=== PATIENT | female | born 1960 | race Caucasian/White ===

== ENCOUNTER 2017-02-16 06:44 | Day surgery (SDC) | payer BC ==
[~2017-02-16 06:44] MED LIST: RINGERS SOLUTION,LACTATED 1,000 ML IV PRN
--- OUTSIDE RECORDS SUMMARY | 2017-02-16 06:48 | XMS REPORT | Continuity of Care Document ---
:1960 Author Organization [employer] [place] [address] Care Team Providers Name Role Phone Unavailable Primary Care Provider Unavailable Source Comments This disclosure is being made pursuant to the All Web Leads program and maynot contain all information available regarding this patient.[facility] Active Allergies and Adverse Reactions Not on File Current Medications Be aware that medications may not be up to date as of this document. Alwaysverify current medications with the patient. Not on file Active Problems Not on file Social History Tobacco Use Types Packs/Day Years Used Date Never Smoker Last Filed Vital Signs Vital Sign Reading Time Taken Blood Pressure 149/78 01/01/2013 2:28 PM HEMATOLOGIST Pulse - - Temperature - - Respiratory Rate - - Height 1.549 m (5' 1") 01/01/2013 2:28 PM HEMATOLOGIST Weight 83.915 kg (185 lb) 01/01/2013 2:28 PM HEMATOLOGIST Body Mass Index 34.97 01/01/2013 2:28 PM HEMATOLOGIST Oxygen Saturation - - Plan of Care Health Maintenance Due Date Last Done Comments Retired-Pertussis Vaccine Adult 1977 Retired-Tetanus Vaccine Adult 1977 Pap Smear 1979 Mammogram 1998 Colonoscopy 2008 Well Adult Visit 2008 Retired-INFLUENZA VACCINE 07/01/2015 Results from Last 3 Months Not on file
--- OUTSIDE RECORDS SUMMARY | 2017-02-16 06:48 | XMS REPORT | Continuity of Care Document ---
:1960 Author Organization [facility] ([facility]) Address [address] [place] [address] Phone [phone] Care Team Providers Name Role Phone Ricardo Hutson Primary Care Provider [phone] Source Comments This disclosure is being made pursuant to the Care Everywhere program, applicable federal and state laws, and may not contain all informaitonavailable regarding this patient.[facility] ([facility]) Active Allergies and Adverse Reactions Allergen Noted Date Severity Reactions Comments Atorvastatin 02/07/2015 OTHER Heart pounding Current Medications Prescription Sig. Disp. Refills Start Date End Date Status valsartan-hydrochlorothia Take 1 Tab by Active zide 80-12.5 mg per mouth daily. tablet metFORMIN (GLUMETZA) 500 Take 500 mg by Active mg XR tablet mouth daily. simvastatin 40 mg tablet Take 40 mg by Active mouth every evening. zolpiDEM 10 mg tablet Take by mouth at Active bedtime as needed. HYDROcodone-acetaminophen Take 1-2 Tabs by 20 Tab 0 02/07/2015 Active 5-325 mg per tablet mouth every 6 hours as needed. Indications: PAIN ondansetron 4 mg Take 1 Tab by 6 Tab 0 02/07/2015 Active disintegrating tablet mouth every 6 hours as needed. Indications: vomiting Active Problems Problem Noted Date RUQ pain 02/07/2015 Biliary sludge 02/07/2015 Social History Tobacco Use Types Packs/Day Years Used Date Never Smoker Smokeless Tobacco: Never Used Alcohol Use Drinks/Week oz/Week Comments No Last Filed Vital Signs Vital Sign Reading Time Taken Blood Pressure 127/70 02/07/2015 5:41 PM CDT Pulse 71 02/07/2015 5:41 PM CDT Temperature 35.4 C (95.7 F) 02/07/2015 1:29 PM CDT Respiratory Rate 16 02/07/2015 5:41 PM CDT Height - - Weight - - Body Mass Index - - Oxygen Saturation 96% 02/07/2015 5:41 PM CDT Plan of Care Health Maintenance Due Date Last Done Comments HCV Screening 1960 Hepatitis B Vaccine (1 of 3 - Primary Series) 1960 Tdap Vaccine 1969 Lipid Disorder Screening 1976 MMR Vaccine 1976 Td Vaccine 1976 Pneumococcal Vaccine (1 of 1 - PPSV23) 1977 Cervical Cancer Screening 1988 Mammogram 1998 Colonoscopy 03/17/2008 Influenza Vaccine: Seasonal (#1) 05/31/2016 Results from Last 3 Months Not on file
[2017-02-16] MEDS ORDERED: RINGERS SOLUTION,LACTATED 1,000 ML IV ONE (07:26)
[2017-02-16] MEDS ORDERED: LIDOCAINE HCL/EPINEPHRINE 50 ML VIAL IJ ONE (08:00)
[2017-02-16] MEDS ORDERED: oxyCODONE HCL/ACETAMINOPHEN 1 TAB TABLET PO PRN (09:18)
[2017-02-16] MEDS ORDERED: MORPHINE SULFATE 2 MG/ML DISP.SYRIN IV PRN (09:18)
[2017-02-16] MEDS ORDERED: RINGERS SOLUTION,LACTATED 1,000 ML IV PRN (09:19)
[2017-02-16] MEDS ORDERED: IBUPROFEN 800 MG TABLET PO PRN (09:19)
--- NOTE | 2017-02-16 09:26 | OR ---
Operative Report - Dictated Report Narrative: DATE OF PROCEDURE: 02/16/2017 INDICATION: 56-year-old female with postmenopausal bleeding and endometrial thickening on ultrasound PREOPERATIVE DIAGNOSIS: Postmenopausal bleeding, endometrial thickening on ultrasound suspicious for polyp POSTOPERATIVE DIAGNOSIS: Postmenopausal bleeding, endometrial polyp, submucosal/ intramural fibroids PROCEDURE: Hysteroscopy, D&C , Polypectomy SURGEON: Kendal Swift D.O. MEDICAL RECORD ASSISTANT: None ANESTHESIA: IV sedation, Paracervical block ESTIMATED BLOOD LOSS: minimal URINE OUTPUT: not recorded FLUID REPLACEMENT: 200 mL FINDINGS: Enlarged uterus sounding to 10 cm with a large endometrial polyp attached at the fundus of the uterus, multiple submucosal/intramural fibroids SPECIMEN(S): Endometrial curettings ,polyp TECHNIQUE: The patient was taken to the operating room and placed in dorsal lithotomy position after adequate IV sedation was obtained. After sterile prep and drape, the anterior lip of the cervix was grasped with a long Allis clamp. A paracervical block was given using a 1% lidocaine with epinephrine solution. The uterus sounded to 10 cm. The 5 mm hysteroscope was inserted into the uterine cavity with findings as noted above. Using hysteroscopic scissors, most of the stalk of the polyp was transected. I was unable to get a good enough barrel assembly inspector with polyp forceps, therefore 7mm Anton myoma grasping forceps were use to remove the remaining portion of the polyp. Using a #3 curet, the entire uterine cavity was curettaged. The hysteroscope was reinserted noting thorough sampling of the entire uterine cavity. Sponge, lap, instrument, needle count correct x 2. DISPOSITION: The patient was transferred to the post anesthesia care unit in good condition.
[2017-02-16 10:38] VITALS: BP 116/58
== END 2017-02-16 06:45 | disposition home or self-care (01) ==
LOC: AMB 06:44
PROVIDERS: ATTEND Obstetrics & Gynecology
PROC: 0UDB8ZX Extraction of Endometrium, Via Natural or Artificial Opening Endoscopic, Diagnostic (ICD-10-PCS; principal; 2017-02-16 08:00)
DX: N84.0 Polyp of corpus uteri (principal); N95.0 Postmenopausal bleeding; E11.9 Type 2 diabetes mellitus without complications; I10 Essential (primary) hypertension; E78.5 Hyperlipidemia, unspecified; G47.30 Sleep apnea, unspecified; Z68.35 Body mass index [BMI] 35.0-35.9, adult